=== PATIENT | female | born 1980 | race Caucasian/White ===

== ENCOUNTER 2024-05-23 14:21 | Day surgery (SDC) | payer OTHER ==
[~2024-05-23] VITALS: Ht 162.6 cm; Wt 80.1 kg
[2024-05-23] VITALS (8 sets, daily range): BP systolic 116–132; BP diastolic 76–81; PULSE 87–91; TEMP 97.5–98.4
--- NOTE | 2024-05-23 14:30 | NUR ---
pt ambulated from ED as a direct admit to room, accompanying patient. vss. med rec and admission assessment complete. pt reports having water to drink around noon but threw up on the way from [place], and last solid intake was around 0730 this morning. 20G IV started to right forearm. pt oriented to room. pt to have surgery around 1600. pt denies needs at this time. call light in reach.
[2024-05-23] MEDS ORDERED: PROTONIX 40MG T40 MG PO (15:02)
[2024-05-23] MEDS ORDERED: WEGOVY1.7 MG/0.7 SQ (15:03)
[2024-05-23] MEDS ORDERED: CIPRO 500MG TA500 MG PO (15:04)
[2024-05-23] MEDS ORDERED: NORVASC 5MG5 MG/TAB PO (15:04)
[2024-05-23] MEDS ORDERED: NORCO 325 MG-51 TAB PO (15:05)
[2024-05-23] MEDS ORDERED: ZOFRAN 4MG T4 MG/TAB PO (15:06)
[2024-05-23] MEDS ORDERED: fentaNYL 50 MCG/ML 2 ML VIAL ONE (15:27)
[2024-05-23] MEDS ORDERED: Lidocaine PF 2% (20 MG/ML) 5 ML VIAL ONE (15:27)
[2024-05-23] MEDS ORDERED: Succinylcholine PF 200 MG/10 ML SYRINGE IV ONE (15:28)
[2024-05-23] MEDS ORDERED: hydrALAZINE 20 MG/ML 1 ML VIAL IV PRN (15:30)
[2024-05-23] MEDS ORDERED: fentaNYL 50 MCG/ML 1 ML SYRINGE/VIAL [PACU/SDC ONLY] IV PRN (15:30)
[2024-05-23] MEDS ORDERED: Ondansetron 4 MG/2 ML VIAL IV PRN (15:30)
[2024-05-23] MEDS ORDERED: LR 1,000 ML IV SCH (15:30)
[2024-05-23] MEDS ORDERED: HYDROmorphone 1 MG/1 ML SYRINGE [PACU/SDC ONLY] IV PRN (15:30)
--- NOTE | 2024-05-23 15:35 | NUR ---
pt off floor for procedure
[2024-05-23] MEDS ORDERED: oxyCODONE/Acetaminophen 5-325 MG TAB PO PRN (16:00)
[2024-05-23] MEDS ORDERED: Ketorolac 15 MG/ML VIAL IV PRN (16:00)
[2024-05-23] MEDS ORDERED: Hyoscyamine 0.125 MG Sublingual TAB SL PRN (16:00)
[2024-05-23] MEDS ORDERED: Lidocaine 2% (20 MG/ML) 20 ML UROJET UR ONE (16:24)
--- NOTE | 2024-05-23 16:56 | NUR ---
shore worker met with patient and her , Sukh, P# [phone], to discuss discharge planning. Patient reports she lives in [place], PCP is Dr. Jah Acuna, Pharmacy [facility] [place]. Insurance is [employer], no issues affording medications. No DPOA-HC and not interested in assistance with one at the hospital. No DME. Patient reports to be indepedent with ADLS and transportation to and from appointments. Patient would like to return home at time of discharge. Discharge plan: Home
--- NOTE | 2024-05-23 18:02 | NUR ---
pt tolerating po intake, vss, pt urinated without difficulty. pain is tolerable. pt ready for discharge. dc instructions given to pt and . all questions answered. escorted to personal vehicle by wheelchair.
== END 2024-05-23 18:03 | disposition home or self-care (01) ==
LOC: SURG 14:21 → SDCO 14:21 → SURG 14:22 → SDCO 18:03 → EDSTATUS 05-25 14:20
DX: N20.1 Calculus of ureter (principal); G47.33 Obstructive sleep apnea (adult) (pediatric); Z87.891 Personal history of nicotine dependence
CPT/HCPCS: OP; C1769; C2617; G0378; G0379; J2704; J3010; J7120